=== PATIENT | female | born 1985 | race African-American/Black ===

== ENCOUNTER 2022-08-17 09:11 | Emergency (ER) | payer BC ==
[2022-08-17] MEDS ORDERED: Albuterol 200 PUFF (6.7GM INHALER) ONE (10:14)
== END 2022-08-17 10:45 | disposition home or self-care (01) ==
LOC: ERS 09:11
DX: J20.9 Acute bronchitis, unspecified (principal); I10 Essential (primary) hypertension
CPT/HCPCS: 71045

== ENCOUNTER 2022-12-18 08:20 | Emergency (ER) | payer BC ==
[2022-12-18 09:46] LABS: Hemoglobin 13.8 g/dL (12.0-16.0); Mean Corpuscular HGB CONC 32.9 g/dL (32.0-36.0); Mean Corpuscular Volume 94.3 fl (78.0-98.0); Mean Platelet Volume 7.8 fL (7.4-10.4); Platelet Count 269 10x3/uL (130-400); RBC Distribution Width 11.8 % (11.5-14.5); Red Blood Cell (RBC) Count 4.46 mill/uL (4.20-5.40); White Blood Cell (WBC) Count 3.5 10x3/uL (4.8-10.8)
[2022-12-18 10:01] LABS: BHCG - Serum Negative (NEGATIVE); Pregs Control Background? CLEAR/WHITE (CLR/WHITE); Pregs Control Bar Appear? YES (CONTROL BAR)
[2022-12-18 10:03] LABS: Band 1 % (5-11); Lymphocytes 55 % (21-51); MDiff Complete? YES; Monocytes 6 % (0-10); Neutrophil 38 % (42-75); Platelet Morphology Comment Appears Adequate; Vacuoles SLIGHT
[2022-12-18 10:07] LABS: ALT (SGPT) 15 U/L (8-55); AST (SGOT) 17 U/L (5-34); Albumin 4.5 g/dL (3.5-5.0); Alkaline Phosphatase 59 U/L (40-110); Anion Gap 12 mmol/L (10-20); BUN (Urea Nitrogen) 9 mg/dL (7.0-18.7); Bilirubin, Total 0.4 mg/dL (0.2-1.2); Calc. Creatinine Clearance 0 mL/min (70-130); Calcium 9.3 mg/dL (7.8-10.44); Carbon Dioxide 24 mmol/L (22-29); Chloride 107 mmol/L (98-107); Estimated GFR 79; Globulin 3.3 g/dL (2.4-3.5); Glucose 88 mg/dL (70-105); Potassium 4.2 mmol/L (3.5-5.1); Protein, Total 7.8 g/dL (6.0-8.3); Sodium 139 mmol/L (136-145)
== END 2022-12-18 12:07 | disposition home or self-care (01) ==
LOC: ERS 08:20
DX: R09.1 Pleurisy (principal); I10 Essential (primary) hypertension
CPT/HCPCS: 36415; 71045; 80053; 84484; 84703; 85025; 93005

== ENCOUNTER 2023-02-06 05:49 | Emergency (ER) | payer BC, SELFPAY ==
[2023-02-06] MEDS ORDERED: Lidocaine 1% PF 5 ML VIAL ONE (08:14)
== END 2023-02-06 09:27 | disposition home or self-care (01) ==
LOC: ERS 05:49
DX: L05.91 Pilonidal cyst without abscess (principal); I10 Essential (primary) hypertension; Z79.899 Other long term (current) drug therapy
CPT/HCPCS: 99282

== ENCOUNTER 2023-02-08 10:55 | Emergency (ER) | payer SELFPAY ==
[2023-02-08] MEDS ORDERED: Ketorolac Tromethamine 10 MG TAB PO SCH (11:45)
== END 2023-02-08 12:02 | disposition home or self-care (01) ==
LOC: ERS 10:55
DX: L05.01 Pilonidal cyst with abscess (principal)
CPT/HCPCS: 99282